=== PATIENT | female | born 1985 | race American Indian/Alaskan Native ===

== ENCOUNTER 2016-11-06 00:03 | Inpatient (IN) | payer OTHER ==
[~2016-11-06 00:03] MED LIST: Acetaminophen 325 MG Tab PO PRN; Calcium Carbonate 500 MG Tab.Chew PO PRN; Carboprost Tromethamine 250 MCG/1 ML Amp IM PRN; Lactated Ringers 500 ML IV ONE; Lidocaine 1% 30 ML SDV INJECT PRN; Methylergonovine 0.2 MG/1 ML Amp IM PRN; Misoprostol 400 MCG (4 X 100 MCG TAB) RECTAL PRN; Ondansetron 4 MG/2 ML SDV IV PRN; Sodium Chloride 0.9% 10 ML Syringe FLUSH PRN; fentaNYL 100 MCG/2 ML SDV IVPUSH PRN
[2016-11-06] MEDS ORDERED: Oxytocin/Normal Saline 30 UNIT/500 ML BAG IV SCH ×2 (00:15→10:45)
[2016-11-06] MEDS: Misoprostol 25 MCG (1/4 of 100 MCG) Tab VAG PRN ×2 (01:11→05:42)
[2016-11-06] MEDS: Lactated Ringers 1,000 ML IV SCH ×3 (05:11→19:13)
--- NOTE | 2016-11-06 08:16 | PCM.LDHP ---
L&D History of Present Illness - General Date of Service: 11/06/16 Admit Problem/Dx: Induction of labor for proteinuria in Source of Information: Patient - History of Present Illness Introduction:: 31-year-old, , at 38w0d presented today at midnight for induction of labor for proteinuria in with history of severe preeclampsia with her previous delivery. Her 24-hour protein earlier this week was 1320 mg (normal < 300 mg). She is overall feeling well. No new headaches or vision changes. Baby has been active. She has been having a lot of back pain and does experience some [place] contractions. Upon arrival to the OB floor, a dose of Cytotoc was placed around 0100. A second dose was placed around 0500. Patient has been tolerating this well. 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: Dermatologic History: Reports: Eczema - Past Surgical History HEENT Surgical History: Reports: Other (see below) (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) GI Surgical History: Reports: Cholecystectomy, Other (see below) (Laparoscopy following cholecystectomy) Other GI Surgeries/Procedures: Exploratory Laparotomy following ellie due to common bile duct being clipped during initial surgery Dermatological Surgical History: Reports: Plastic surgical reconstruction/repair , Other (see below) Social & Family History - Family History Cardiac: Reports: CAD (Paternal grandmother; Maternal grandfather), Hypertension (Mother, Father, 1/2 sister, 2 brothers) Neurological: Reports: CVA (Paternal grandmother) Endocrine/Metabolic: Reports: Diabetes, type II (Brother) Dermatologic: Reports: Eczema Oncologic: Reports: Prostate - Tobacco Use Smoking Status *Q: Former Smoker Years of Tobacco use: 10 Used Tobacco, but Quit: Yes Month Tobacco Last Used: 01/2013 Second Hand Smoke Exposure: No - Recreational Drug Use Recreational Drug Use: No - Sexual History Sexual History: Reports: Sexually active, Vaginal intercourse - Living Situation & Occupation Living situation: Reports: Occupation: employed H&P Review of Systems - Review of Systems: Review Of Systems: See Below General: Reports: no symptoms HEENT: Reports: no symptoms Pulmonary: Reports: No Symptoms Cardiovascular: Reports: no symptoms Gastrointestinal: Reports: No symptoms Genitourinary: Reports: no symptoms Musculoskeletal: Reports: back pain Skin: Reports: no symptoms L&D Exam - Exam Exam: See Below - Vital Signs Vital Signs: Last Vital Signs Temp 36.3 C 11/06/16 04:37 Pulse 62 11/06/16 04:37 Resp 16 11/06/16 04:37 BP 117/70 11/06/16 04:37 Pulse Ox 98 11/06/16 00:30 Weight: 96.162 kg - OB Specific Contraction Duration (sec): 70-90 Contraction Frequency (min): 3 Contraction Intensity: Moderate - Stacy Score Stacy Score Cervix Position: Posterior Tsacy Score Consistency: Medium Stacy Score Effacement: 51-70% Stacy Score Dilation: 1-2 cm Stacy Score 's Station: -3 Stacy Score Total: 4 - Exam General: alert, oriented Lungs: Clear to auscultation, Normal respiratory effort Cardiovascular: regular rate, regular rhythm. No: systolic murmur, diastolic murmur Abdomen: normal bowel sounds, soft Extremities: normal inspection Skin: warm, dry, intact - Patient Data Lab Results last 24 hrs: Laboratory Results - last 24 hr 11/06/16 Range/Units 01:08 WBC 8.1 (5.0-10.0) 10^3/uL RBC 4.07 L (4.2-5.4) 10^6/uL Hgb 12.4 (12.0-16.0) g/dL Hct 36.5 L (37.0-47.0) % MCV 89.7 (80-100) fL MCH 30.5 (27.0-34.0) pg MCHC 34.0 (33.0-35.0) g/dL Plt Count 281 (150-450) 10^3/uL Result Diagrams: 11/06/16 01:08 - Problem List (1) care in third trimester SNOMED Code(s): 105994614, 65049093, 13206127, 639358708, 004162688 ICD Code: Z34.93 - ENCNTR FOR SUPRVSN OF NORMAL PREG, UNSP, THIRD TRIMESTER Status: Acute Current Visit: Yes (2) Proteinuria affecting in third trimester SNOMED Code(s): 69687636, 61473857, 665522986 ICD Code: O12.13 - GESTATIONAL PROTEINURIA, THIRD TRIMESTER Status: Acute Current Visit: Yes (3) History of pre-eclampsia in prior , currently in third trimester SNOMED Code(s): 777529762, 892739721 ICD Code: O09.293 - SUPRVSN OF PREG W POOR REPRODCTV OR OBSTET HX, THIRD TRI Status: Acute Current Visit: Yes Problem List Initiated/Reviewed/Updated: Yes Orders Last 24hrs: Active Orders 24 hr Category Date Time Status Patient Status [ADT] Routine ADT 11/06/16 00:03 Active Communication Order [RC] ASDIRECTED Care 11/06/16 00:03 Active Communication Order [RC] ASDIRECTED Care 11/06/16 00:08 Active Communication Order [RC] ASDIRECTED Care 11/06/16 00:08 Active Communication Order [RC] ASDIRECTED Care 11/06/16 00:08 Active Communication Order [RC] ASDIRECTED Care 11/06/16 00:08 Active Communication Order [RC] PER UNIT ROUTINE Care 11/06/16 00:07 Active Heart Tones [RC] PER UNIT ROUTINE Care 11/06/16 00:03 Active Notify Provider Vital Signs OB [RC] ASDIRECTED Care 11/06/16 00:03 Active Notify Provider [RC] PRN Care 11/06/16 00:03 Active Notify Provider [RC] PRN Care 11/06/16 00:08 Active Notify Provider [RC] PRN Care 11/06/16 00:08 Active Notify Provider [RC] STAT Care 11/06/16 00:08 Active Pump Management, Intrathecal [RC] ASDIRECTED Care 11/06/16 00:03 Active Up ad Ann-Marie [RC] ASDIRECTED Care 11/06/16 00:03 Active Vaginal Exam [RC] PRN Care 11/06/16 00:08 Active Vital Signs [RC] PER UNIT ROUTINE Care 11/06/16 00:03 Active Clear Liquid Diet [DIET] Diet 11/06/16 Breakfast Active Acetaminophen [Tylenol] Med 11/06/16 00:03 Active 650 mg PO Q4H PRN Calcium Carbonate [Tums] Med 11/06/16 00:03 Active 1,000 mg PO Q2H PRN Carboprost Tromethamine [Hemabate DS] Med 11/06/16 00:03 Active 250 mcg IM ASDIRECTED PRN Lactated Ringers [Ringers, Lactated] 1,000 ml Med 11/06/16 00:15 Active IV ASDIRECTED Lidocaine 1% [Xylocaine-MPF 1%] Med 11/06/16 00:03 Active 10 ml INJECT ASDIRECTED PRN Methylergonovine [Methergine] Med 11/06/16 00:03 Active 0.2 mg IM ASDIRECTED PRN Misoprostol [Cytotec] Med 11/06/16 00:07 Active 25 mcg VAG Q4H PRN Misoprostol [Cytotec] Med 11/06/16 00:03 Active 800 mcg RECTAL ASDIRECTED PRN Ondansetron [Zofran] Med 11/06/16 00:03 Active 4 mg IV Q4H PRN Oxytocin/Normal Saline [Pitocin in NS 30 UNIT/500 ML] Med 11/06/16 00:15 Active 30 unit in 500 ml IV TITRATE Sodium Chloride 0.9% [Saline Flush] Med 11/06/16 00:03 Active 10 ml FLUSH ASDIRECTED PRN fentaNYL [Sublimaze] Med 11/06/16 00:03 Active 50 mcg IVPUSH Q1H PRN Saline Lock Insert [OM.PC] Routine Oth 11/06/16 00:03 Ordered Resuscitation Status Routine Resus Stat 11/06/16 00:03 Ordered Medication Orders Acetaminophen (Tylenol) 650 mg PO Q4H PRN PRN Reason: Pain (Mild 1-3) and fever Calcium Carbonate/Glycine (Tums) 1,000 mg PO Q2H PRN PRN Reason: Indigestion Carboprost Tromethamine (Hemabate Ds) 250 mcg IM ASDIRECTED PRN PRN Reason: HEMORRHAGE Fentanyl (Sublimaze) 50 mcg IVPUSH Q1H PRN PRN Reason: Pain (moderate 4-6) Lactated Ringer's (Ringers, Lactated) 1,000 mls @ 125 mls/hr IV ASDIRECTED ROSETTE Last Admin: 11/06/16 05:11 Dose: 125 mls/hr Oxytocin/Sodium Chloride (Pitocin In Ns 30 Unit/500 Ml) 30 unit in 500 mls @ 2 mls/hr IV TITRATE ROSETTE; 2 MUNITS/MIN PRN Reason: Protocol Lidocaine HCl (Xylocaine-Mpf 1%) 10 ml INJECT ASDIRECTED PRN PRN Reason: Perineal Repair Methylergonovine Maleate (Methergine) 0.2 mg IM ASDIRECTED PRN PRN Reason: Hemorrhage Misoprostol (Cytotec) 800 mcg RECTAL ASDIRECTED PRN PRN Reason: Hemorrhage Misoprostol (Cytotec) 25 mcg VAG Q4H PRN PRN Reason: cervical ripening Stop: 11/07/16 04:08 Last Admin: 11/06/16 05:42 Dose: 25 mcg Admin: 11/06/16 01:11 Dose: 25 mcg Ondansetron HCl (Zofran) 4 mg IV Q4H PRN PRN Reason: Nausea/Vomiting Sodium Chloride (Saline Flush) 10 ml FLUSH ASDIRECTED PRN PRN Reason: Keep Vein Open Assessment/Plan Comment:: 1. Continue routine intrapartum cares 2. Plan for another dose of Cytocec around 930 3. Will start pitocin and AROM when needed 4. Monitor BP. Obtain PIH labs if BP >140/90 5. Expectant management. Anticipate Rose Mary Dodd MD ADDENDUM: Was contacted by RN around 1000. Patient karine too frequently to receive another dose of Cytotec. Will start pitocin and plan for AROM when able. Rose Mary Dodd MD
[2016-11-06] MEDS ORDERED: Oxytocin 10 Units/1 ML SDV IM PRN (21:30)
[2016-11-06] MEDS ORDERED: Simethicone 80 MG Tab.Chew PO PRN (21:30)
[2016-11-06] MEDS ORDERED: Benzocaine/Menthol 20%-0.5% Spray 56 GM Canister TOP PRN (21:30)
[2016-11-06] MEDS ORDERED: Sodium Chloride 0.9% 10 ML Syringe FLUSH PRN (21:30)
[2016-11-06] MEDS ORDERED: Carboprost Tromethamine 250 MCG/1 ML Amp IM PRN (21:30)
[2016-11-06] MEDS ORDERED: Famotidine 20 MG Tab PO PRN (21:30)
[2016-11-06] MEDS ORDERED: Misoprostol 400 MCG (4 X 100 MCG TAB) RECTAL PRN (21:30)
[2016-11-06] MEDS ORDERED: diphenhydrAMINE 25 MG Tab PO PRN (21:32)
--- NOTE | 2016-11-06 21:39 | PCM.DEL ---
L & D Note - General Info Date of Service: 11/06/16 Mother's Due Date: 11/20/16 - Delivery Note Labor: augmented by ARM, induced by oxytocin Cervical Ripening Method: Misoprostil (x2 doses) Delivery Outcome: Livebirth Infant Delivery Method: Spontaneous Vaginal Delivery Presentation: Left Occiput Anterior (LUPE) Nuchal cord: present, reduced Anesthesia Type: None Amniotic Fluid Description: Clear Episiotomy Type: None Laceration: 1st degree, perineal (Not repaired) Placenta: intact, spontaneous Cord: 3 vessels Resuscitation needed: No : stimulated, warmed, blanket used Score 1 min: 9 Score 5 min: 9 Delivery Comments (Free Text/Narrative):: 31-year-old, now , presented at midnight for induction of labor. She received 2 doses of Cytotec for cervical ripening. Around 1000, pitocin was started for induction of labor as patient was karine too frequency to continue Cytotec. At 1940, membranes were artificially ruptured to further augment labor. After AROM, patient rapidly progressed to complete dilation over the next 45 minutes. She pushed for approximately 10 minutes and delivered a viable female . A loose nuchal cord was reduced at the perineum, and baby was placed immediately on mother's chest. Apgars were 9 and 9 at 1 and 5 minutes respectively. Baby weighed 6 lb 11 oz (3040 grams). Cord was clamped x2 and cut. Blood for cord blood gases was obtained. The placenta delivered spontaneously about 10 minutes later and appeared to be intact. A 3 vessel cord was noted. A very superficial perineal laceration was noted. It appeared hemostatic so was not repaired. Remainder of perineum was intact. Uterus was firm and bleeding appropriate. There were no immediately complications. Induction Criteria - Stacy Score Stacy Score Dilation: 1-2 cm Stacy Score Effacement: 60-70% Stacy Score 's Station: -2 Stacy Score Consistency: Medium Stacy Score Cervix Position: Posterior Stacy Score Total: 5 Stacy Score Presenting Part: Reports: Cephalic - Induction Gestational Age >/= 39 wks: No Medical indication: Proteinuria in Estimated pelvis: Reports: Adequate Reassuring monitoring strip: Yes Absence of tachy systole: Yes - Augmentation Estimated Pelvis: Reports: Adequate weight estimated:: Reports: AGA Reassuring monitoring strip: Yes Absence of tachy systole: Yes - General Info Date of Service: 11/06/16 - Patient Data Vitals - most recent: Last Vital Signs Temp 36.4 C 11/06/16 14:55 Pulse 67 11/06/16 19:30 Resp 18 11/06/16 19:30 BP 137/79 11/06/16 19:30 Pulse Ox 98 11/06/16 00:30 Weight - most recent: 96.162 kg Lab Results last 24 hrs: Laboratory Results - last 24 hr 11/06/16 Range/Units 01:08 WBC 8.1 (5.0-10.0) 10^3/uL RBC 4.07 L (4.2-5.4) 10^6/uL Hgb 12.4 (12.0-16.0) g/dL Hct 36.5 L (37.0-47.0) % MCV 89.7 (80-100) fL MCH 30.5 (27.0-34.0) pg MCHC 34.0 (33.0-35.0) g/dL Plt Count 281 (150-450) 10^3/uL Med Orders - Current: Current Medications Acetaminophen (Tylenol) 650 mg PO Q6H PRN PRN Reason: mild pain or fever Benzocaine/Menthol (Dermoplast Pain Relief [place]) 0 gm TOP Q4H PRN PRN Reason: Perineal comfort measures Calcium Carbonate/Glycine (Tums) 1,000 mg PO Q2H PRN PRN Reason: Indigestion Carboprost Tromethamine (Hemabate Ds) 250 mcg IM ASDIRECTED PRN PRN Reason: Excessive vaginal bleeding Diphenhydramine HCl (Benadryl) 25 mg PO BEDTIME PRN PRN Reason: Sleep Docusate Sodium (Colace) 100 mg PO BID PRN PRN Reason: Constipation Famotidine (Pepcid) 20 mg PO BID PRN PRN Reason: Heartburn Oxytocin/Sodium Chloride (Pitocin In Ns 30 Unit/500 Ml) 30 unit in 500 mls @ 2 mls/hr IV TITRATE ROSETTE; 2 MUNITS/MIN PRN Reason: Protocol Last Titration: 11/06/16 17:35 Dose: 14 munits/min, 14 mls/hr Ibuprofen (Motrin) 800 mg PO Q8H PRN PRN Reason: Mild Pain or Fever Misoprostol (Cytotec) 25 mcg VAG Q4H PRN PRN Reason: cervical ripening Stop: 11/07/16 04:08 Last Admin: 11/06/16 05:42 Dose: 25 mcg Misoprostol (Cytotec) 800 mcg RECTAL ONETIME PRN PRN Reason: Hemorrhage Oxytocin (Pitocin) 10 unit IM ONETIME PRN PRN Reason: Bleeding Prenat Multivit/[place]/Iron/Folic Ac ( Plus Iron) 1 each PO DAILY ROSETTE Simethicone (Simethicone) 80 mg PO Q4H PRN PRN Reason: Gas Sodium Chloride (Saline Flush) 10 ml FLUSH ASDIRECTED PRN PRN Reason: Keep Vein Open Sodium Chloride (Saline Flush) 10 ml FLUSH ASDIRECTED PRN PRN Reason: Keep Vein Open Discontinued Medications Acetaminophen (Tylenol) 650 mg PO Q4H PRN PRN Reason: Pain (Mild 1-3) and fever Carboprost Tromethamine (Hemabate Ds) 250 mcg IM ASDIRECTED PRN PRN Reason: HEMORRHAGE Fentanyl (Sublimaze) 50 mcg IVPUSH Q1H PRN PRN Reason: Pain (moderate 4-6) Last Admin: 11/06/16 19:40 Dose: 50 mcg Lactated Ringer's (Ringers, Lactated) 500 mls @ 999 mls/hr IV .BOLUS ONE Stop: 11/06/16 00:33 Lactated Ringer's (Ringers, Lactated) 1,000 mls @ 125 mls/hr IV ASDIRECTED ROSETTE Last Admin: 11/06/16 19:13 Dose: 125 mls/hr Oxytocin/Sodium Chloride (Pitocin In Ns 30 Unit/500 Ml) 30 unit in 500 mls @ 2 mls/hr IV TITRATE ROSETTE; 2 MUNITS/MIN PRN Reason: Protocol Lidocaine HCl (Xylocaine-Mpf 1%) 10 ml INJECT ASDIRECTED PRN PRN Reason: Perineal Repair Methylergonovine Maleate (Methergine) 0.2 mg IM ASDIRECTED PRN PRN Reason: Hemorrhage Misoprostol (Cytotec) 800 mcg RECTAL ASDIRECTED PRN PRN Reason: Hemorrhage Ondansetron HCl (Zofran) 4 mg IV Q4H PRN PRN Reason: Nausea/Vomiting - Problem List & Annotations (1) care in third trimester SNOMED Code(s): 516706871, 78234623, 78338307, 658659697, 828332512 Code(s): Z34.93 - ENCNTR FOR SUPRVSN OF NORMAL PREG, UNSP, THIRD TRIMESTER Status: Acute Current Visit: Yes (2) Proteinuria affecting in third trimester SNOMED Code(s): 68474534, 63260675, 740093675 Code(s): O12.13 - GESTATIONAL PROTEINURIA, THIRD TRIMESTER Status: Acute Current Visit: Yes (3) History of pre-eclampsia in prior , currently in third trimester SNOMED Code(s): 878703377, 236533864 Code(s): O09.293 - SUPRVSN OF PREG W POOR REPRODCTV OR OBSTET HX, THIRD TRI Status: Acute Current Visit: Yes (4) (normal spontaneous vaginal delivery) SNOMED Code(s): 64526272 Code(s): O80 - ENCOUNTER FOR FULL-TERM UNCOMPLICATED DELIVERY Status: Acute Current Visit: Yes - Problem List Review Problem List Initiated/Reviewed/Updated: Yes - My Orders Last 24 Hours: My Active Orders 11/06/16 00:03 Patient Status [ADT] Routine Communication Order [RC] ASDIRECTED Vital Signs [RC] PER UNIT ROUTINE Calcium Carbonate [Tums] 1,000 mg PO Q2H PRN Sodium Chloride 0.9% [Saline Flush] 10 ml FLUSH ASDIRECTED PRN Saline Lock Insert [OM.PC] Routine Resuscitation Status Routine 11/06/16 00:07 Communication Order [RC] PER UNIT ROUTINE Misoprostol [Cytotec] 25 mcg VAG Q4H PRN 11/06/16 00:08 Communication Order [RC] ASDIRECTED Communication Order [RC] ASDIRECTED Communication Order [RC] ASDIRECTED Communication Order [RC] ASDIRECTED Notify Provider [RC] PRN Notify Provider [RC] PRN Notify Provider [RC] STAT Vaginal Exam [RC] PRN 11/06/16 10:45 Oxytocin/Normal Saline [Pitocin in NS 30 UNIT/500 ML] 30 unit in 500 ml IV TITRATE 11/06/16 21:30 Vital Signs [RC] PFP Consult to Technical Training Specialist [CONS] Routine Acetaminophen [Tylenol] 650 mg PO Q6H PRN Benzocaine/Menthol [Dermoplast Pain Relief [place]] See Dose Instructions TOP Q4H PRN Carboprost Tromethamine [Hemabate DS] 250 mcg IM ASDIRECTED PRN Docusate Sodium [Colace] 100 mg PO BID PRN Famotidine [Pepcid] 20 mg PO BID PRN Ibuprofen [Motrin] 800 mg PO Q8H PRN Misoprostol [Cytotec] 800 mcg RECTAL ONETIME PRN Oxytocin [Pitocin] 10 unit IM ONETIME PRN Simethicone 80 mg PO Q4H PRN Sodium Chloride 0.9% [Saline Flush] 10 ml FLUSH ASDIRECTED PRN 11/06/16 21:31 Notify Provider Vital Signs OB [RC] ASDIRECTED Up ad Ann-Marie [RC] ASDIRECTED Assess Lochia [WOMSER] Per Unit Routine Assess Uterine Involution [WOMSER] Per Unit Routine Breast Pump [WOMSER] Per Unit Routine Ice Therapy [OM.PC] Per Unit Routine Perineal Care [OM.PC] Per Unit Routine Saline Lock Insert [OM.PC] Urgent Sitz Bath [OM.PC] Per Unit Routine 11/06/16 21:32 diphenhydrAMINE [Benadryl] 25 mg PO BEDTIME PRN 11/07/16 09:00 Vit with Ca/FA/Iron [ Plus Iron] 1 each PO DAILY 11/07/16 Breakfast Regular Diet [DIET] - Assessment Assessment:: 31-year-old, now , status post - Plan Plan:: 1. Initiate routine orders 2. consultation ordered as patient plans to breastfeed 3. Benadryl ordered PRN to help sleep 4. Anticipate discharge 11/08/16 Rose Mary Dodd MD
[2016-11-06] MEDS: Ibuprofen 800 MG Tab PO PRN (22:21)
[2016-11-07] MEDS: Acetaminophen 325 MG Tab PO PRN ×3 (04:09→21:36)
[2016-11-07] MEDS: Ibuprofen 800 MG Tab PO PRN ×2 (07:57→19:35)
[2016-11-07] MEDS: Docusate Sodium 100 MG Cap PO PRN ×2 (07:57→21:35)
[2016-11-07] MEDS: Prenatal Multivitamin with Calcium/Folic Acid/Iron Tab PO SCH (07:59)
--- NOTE | 2016-11-07 11:05 | PCM.PNPP ---
- General Info Date of Service: 11/07/16 Subjective Update: 31-year-old, now , PPD#1 status post . Patient is doing well. She is tolerating a general diet. She has some cramping with but is otherwise pain-free. Vaginal bleeding is decreasing. She is voiding without difficulty. No dizziness or lightheadedness. She is , and it is going well right now. Functional Status: Reports: pain controlled, tolerating diet, ambulating, urinating - Review of Systems General: Reports: No Symptoms HEENT: Reports: no symptoms Pulmonary: Reports: no symptoms Cardiovascular: Reports: No Symptoms Gastrointestinal: Reports: No symptoms Genitourinary: Reports: no symptoms Musculoskeletal: Reports: no symptoms Skin: Reports: no symptoms - General Info Date of Service: 11/07/16 - Patient Data Vital Signs - most recent: Last Vital Signs Temp 36.5 C 11/07/16 08:00 Pulse 51 L 11/07/16 08:00 Resp 16 11/07/16 08:00 BP 126/70 11/07/16 08:00 Pulse Ox 98 11/06/16 00:30 Weight - most recent: 96.162 kg I&O - last 24 hours: Intake & Output 11/06/16 11/07/16 11/07/16 22:59 06:59 14:59 Intake Total 4500 Balance 4500 Med Orders - Current: Current Medications Acetaminophen (Tylenol) 650 mg PO Q6H PRN PRN Reason: mild pain or fever Last Admin: 11/07/16 04:09 Dose: 650 mg Benzocaine/Menthol (Dermoplast Pain Relief [place]) 0 gm TOP Q4H PRN PRN Reason: Perineal comfort measures Last Admin: 11/06/16 23:20 Dose: 1 gm Calcium Carbonate/Glycine (Tums) 1,000 mg PO Q2H PRN PRN Reason: Indigestion Carboprost Tromethamine (Hemabate Ds) 250 mcg IM ASDIRECTED PRN PRN Reason: Excessive vaginal bleeding Diphenhydramine HCl (Benadryl) 25 mg PO BEDTIME PRN PRN Reason: Sleep Docusate Sodium (Colace) 100 mg PO BID PRN PRN Reason: Constipation Last Admin: 11/07/16 07:57 Dose: 100 mg Famotidine (Pepcid) 20 mg PO BID PRN PRN Reason: Heartburn Last Admin: 11/07/16 07:57 Dose: 20 mg Oxytocin/Sodium Chloride (Pitocin In Ns 30 Unit/500 Ml) 30 unit in 500 mls @ 2 mls/hr IV TITRATE ROSETTE; 2 MUNITS/MIN PRN Reason: Protocol Last Titration: 11/06/16 23:16 Dose: Infused Ibuprofen (Motrin) 800 mg PO Q8H PRN PRN Reason: Mild Pain or Fever Last Admin: 11/07/16 07:57 Dose: 800 mg Misoprostol (Cytotec) 800 mcg RECTAL ONETIME PRN PRN Reason: Hemorrhage Oxytocin (Pitocin) 10 unit IM ONETIME PRN PRN Reason: Bleeding Prenat Multivit/Event Management Consultant/Iron/Folic Ac ( Plus Iron) 1 each PO DAILY ROSETTE Last Admin: 11/07/16 07:59 Dose: 1 each Simethicone (Simethicone) 80 mg PO Q4H PRN PRN Reason: Gas Sodium Chloride (Saline Flush) 10 ml FLUSH ASDIRECTED PRN PRN Reason: Keep Vein Open Sodium Chloride (Saline Flush) 10 ml FLUSH ASDIRECTED PRN PRN Reason: Keep Vein Open Discontinued Medications Acetaminophen (Tylenol) 650 mg PO Q4H PRN PRN Reason: Pain (Mild 1-3) and fever Carboprost Tromethamine (Hemabate Ds) 250 mcg IM ASDIRECTED PRN PRN Reason: HEMORRHAGE Fentanyl (Sublimaze) 50 mcg IVPUSH Q1H PRN PRN Reason: Pain (moderate 4-6) Last Admin: 11/06/16 19:40 Dose: 50 mcg Lactated Ringer's (Ringers, Lactated) 500 mls @ 999 mls/hr IV .BOLUS ONE Stop: 11/06/16 00:33 Last Admin: 11/07/16 00:48 Dose: Not Given Lactated Ringer's (Ringers, Lactated) 1,000 mls @ 125 mls/hr IV ASDIRECTED ROSETTE Last Admin: 11/06/16 19:13 Dose: 125 mls/hr Oxytocin/Sodium Chloride (Pitocin In Ns 30 Unit/500 Ml) 30 unit in 500 mls @ 2 mls/hr IV TITRATE ROSETTE; 2 MUNITS/MIN PRN Reason: Protocol Lidocaine HCl (Xylocaine-Mpf 1%) 10 ml INJECT ASDIRECTED PRN PRN Reason: Perineal Repair Methylergonovine Maleate (Methergine) 0.2 mg IM ASDIRECTED PRN PRN Reason: Hemorrhage Misoprostol (Cytotec) 800 mcg RECTAL ASDIRECTED PRN PRN Reason: Hemorrhage Misoprostol (Cytotec) 25 mcg VAG Q4H PRN PRN Reason: cervical ripening Stop: 11/07/16 04:08 Last Admin: 11/06/16 05:42 Dose: 25 mcg Ondansetron HCl (Zofran) 4 mg IV Q4H PRN PRN Reason: Nausea/Vomiting Last Admin: 11/06/16 20:51 Dose: 4 mg - Interaction Infant Disposition, : [place] in Room with Family Infant Interaction: Holding Infant Feeding: Breastfed ; Nursed Well Support Person: - Recovery Exam Fundal Tone: Firm Fundal Level: At Umbilicus Fundal Placement: Midline Lochia Amount: Small Lochia Color: Rubra/Red Perineum Description: Intact, Minimal Bruising/Swelling Other Perinuem Description: 1st degree, no repair needed Episiotomy/Laceration: Approximated Bladder Status: Voiding Urinary Elimination: Voided - Exam General: alert, oriented HEENT: Mucous membr. moist/pink Lungs: Clear to auscultation, Normal respiratory effort Cardiovascular: Regular Rate, Regular Rhythm, No Murmurs Extremities: no edema Skin: warm, dry, intact - Problem List & Annotations (1) care in third trimester SNOMED Code(s): 900287056, 69576223, 74334185, 406976011, 586740545 Code(s): Z34.93 - ENCNTR FOR SUPRVSN OF NORMAL PREG, UNSP, THIRD TRIMESTER Status: Acute Current Visit: Yes (2) Proteinuria affecting in third trimester SNOMED Code(s): 74161863, 96895326, 487917413 Code(s): O12.13 - GESTATIONAL PROTEINURIA, THIRD TRIMESTER Status: Acute Current Visit: Yes (3) History of pre-eclampsia in prior , currently in third trimester SNOMED Code(s): 293739117, 377268119 Code(s): O09.293 - SUPRVSN OF PREG W POOR REPRODCTV OR OBSTET HX, THIRD TRI Status: Acute Current Visit: Yes (4) (normal spontaneous vaginal delivery) SNOMED Code(s): 04267448 Code(s): O80 - ENCOUNTER FOR FULL-TERM UNCOMPLICATED DELIVERY Status: Acute Current Visit: Yes - Problem List Review Problem List Initiated/Reviewed/Updated: Yes - My Orders Last 24 Hours: My Active Orders 11/06/16 10:45 Oxytocin/Normal Saline [Pitocin in NS 30 UNIT/500 ML] 30 unit in 500 ml IV TITRATE 11/06/16 21:30 Vital Signs [RC] 08,20 Consult to Honey Producer [CONS] Routine Acetaminophen [Tylenol] 650 mg PO Q6H PRN Benzocaine/Menthol [Dermoplast Pain Relief [place]] See Dose Instructions TOP Q4H PRN Carboprost Tromethamine [Hemabate DS] 250 mcg IM ASDIRECTED PRN Docusate Sodium [Colace] 100 mg PO BID PRN Famotidine [Pepcid] 20 mg PO BID PRN Ibuprofen [Motrin] 800 mg PO Q8H PRN Misoprostol [Cytotec] 800 mcg RECTAL ONETIME PRN Oxytocin [Pitocin] 10 unit IM ONETIME PRN Simethicone 80 mg PO Q4H PRN Sodium Chloride 0.9% [Saline Flush] 10 ml FLUSH ASDIRECTED PRN 11/06/16 21:31 Notify Provider Vital Signs OB [RC] ASDIRECTED Up ad Ann-Marie [RC] ASDIRECTED Assess Lochia [WOMSER] Per Unit Routine Assess Uterine Involution [WOMSER] Per Unit Routine Breast Pump [WOMSER] Per Unit Routine Ice Therapy [OM.PC] Per Unit Routine Perineal Care [OM.PC] Per Unit Routine Saline Lock Insert [OM.PC] Urgent Sitz Bath [OM.PC] Per Unit Routine 11/06/16 21:32 diphenhydrAMINE [Benadryl] 25 mg PO BEDTIME PRN 11/07/16 09:00 Vit with Ca/FA/Iron [ Plus Iron] 1 each PO DAILY 11/07/16 Breakfast Regular Diet [DIET] - Assessment Assessment:: 31-year-old, now , PPD#1 status post - Plan Plan:: 1. Continue routine orders 2. well. 3. Benadryl ordered PRN to help sleep 4. Anticipate discharge 11/08/16. Dr. Holt will see patient and discharge tomorrow. Follow-up with me in clinic in 6 weeks for visit Rose Mary Dodd MD
[2016-11-08] MEDS: Prenatal Multivitamin with Calcium/Folic Acid/Iron Tab PO SCH (09:30)
[2016-11-08] MEDS: Ibuprofen 800 MG Tab PO PRN (09:30)
[2016-11-08 11:35] VITALS: BP 141/69
--- NOTE | 2016-11-08 14:44 | DISCH ---
DATE: 11/08/2016 The patient is day 2, status post vaginal delivery. She was induced at term for proteinuria. Mom and baby are doing well. She reports her lochia is minimal. She has no complaints. PHYSICAL EXAMINATION: Vital Signs: She is afebrile. Blood pressure 126 to 145 over 70 to 75, heart rate 43 to 51, respiratory rate 16 to 20. Abdomen: The patient's fundus is firm, below the umbilicus. Extremities: Have no tenderness, no edema. LABORATORY DATA: The patient's blood type O positive, rubella immune. Pre- delivery hemoglobin was good at 12.4. ASSESSMENT AND PLAN: day 2, status post vaginal delivery at term. Her and baby are both doing well. We will discharge her to home. She will follow up with her primary in 6 weeks. [facility] /[id number]
== END 2016-11-08 11:50 | disposition home or self-care (01) | DRG 775 ==
LOC: DL.OB 00:03 → UNDOADMOB 00:03 → EDSTATUS 00:13 → UNDOADMOB 00:18 → DL.OB 00:18 → INTOOBSV 21:42 → OBSVTOIN 21:42 → DL.OB 21:42
PROVIDERS: ADMIT Family Medicine; ATTEND Family Medicine
PROC: 10E0XZZ Delivery of Products of Conception, External Approach (ICD-10-PCS; principal; 2016-11-06)
PROC: 3E033VJ Introduction of Other Hormone into Peripheral Vein, Percutaneous Approach (ICD-10-PCS; 2016-11-06)
PROC: 10907ZC Drainage of Amniotic Fluid, Therapeutic from Products of Conception, Via Natural or Artificial Opening (ICD-10-PCS; 2016-11-06)
PROC: 4A1HXFZ Monitoring of Products of Conception, Cardiac Rhythm, External Approach (ICD-10-PCS; 2016-11-06)
DX: O12.13 Gestational proteinuria, third trimester (principal); O70.0 First degree perineal laceration during delivery; O09.293 Supervision of pregnancy with other poor reproductive or obstetric history, third trimester; Z3A.38 38 weeks gestation of pregnancy; Z37.0 Single live birth; Z87.891 Personal history of nicotine dependence
CPT/HCPCS: 36415; 85027; A9270-GY; J2405; J2590; J3010; J7120

== ENCOUNTER 2018-12-10 03:22 | Inpatient (IN) | payer BC, OTHER ==
[2018-12-10] MEDS ORDERED: Methylergonovine 0.2 MG/1 ML Amp IM PRN (04:12)
[2018-12-10] MEDS ORDERED: Ondansetron 4 MG/2 ML SDV IV PRN (04:12)
[2018-12-10] MEDS ORDERED: Lidocaine 1% 30 ML SDV INJECT PRN (04:12)
[2018-12-10] MEDS ORDERED: Tranexamic Acid 1,000 MG in Sodium Chloride 0.9% 100 ML IV PRN ×2 (04:12→09:14)
[2018-12-10] MEDS ORDERED: Misoprostol 400 MCG (4 X 100 MCG TAB) RECTAL PRN ×2 (04:12→09:14)
[2018-12-10] MEDS ORDERED: Carboprost Tromethamine 250 MCG/1 ML Amp IM PRN ×2 (04:12→09:14)
[2018-12-10] MEDS ORDERED: Sodium Chloride 0.9% 10 ML Syringe FLUSH PRN ×2 (04:12→09:14)
[2018-12-10] MEDS ORDERED: Lactated Ringers 1,000 ML IV ONE (04:15)
[2018-12-10] MEDS ORDERED: Lactated Ringers 1,000 ML IV SCH (04:15)
[2018-12-10] MEDS ORDERED: Oxytocin/Normal Saline 30 UNIT/500 ML BAG IV SCH (04:15)
[2018-12-10] MEDS ORDERED: EPINEPHrine 1 MG/ML SDV ONE (04:49)
[2018-12-10] MEDS ORDERED: fentaNYL 100 MCG/2 ML SDV ONE (04:49)
--- NOTE | 2018-12-10 05:23 | PCM.PRNOTE ---
- Free Text/Narrative Note: Requested to provide analgesia to full term patient in severe pain. Upon entering the room, patient is sitting on edge of bed complaining of severe abdominal/pelvic pain and discomfort. Procedure was discussed with patient including adverse outcomes and expectations. Pt consented to analgesia, SAB/ IT. Pt placed into a proper sitting position. Landmarks for SAB/IT were identified and marked. Hands were washed and appropriate PPE was applied. Back was prepped with betadine x3. A sterile, transparent, fenestrated drape was applied. Excess betadine was removed. Using 3 mL of a 1% lidocaine solution , a skin wheel was placed at the L2/L3 interspace. A 24 ga (4 inch) Pencan spinal needle was inserted until positive for CSF. Negative for heme or paresthesias. Injected fentanyl 30 mcg, sufentanil 25 mcg, and 7.5 mg of a 0.75 % bupivacaine solution with an epi wash. Pt was placed left lateral position for approximately 20 minutes. There were zero complications or adverse outcomes. Will continue to monitor. Procedure Date & Time: 12/10/18 [id number]
[2018-12-10] MEDS ORDERED: Calcium Carbonate 500 MG Tab.Chew PO PRN (07:28)
[2018-12-10] MEDS ORDERED: Simethicone 80 MG Tab.Chew PO PRN (09:14)
[2018-12-10] MEDS ORDERED: Oxytocin 10 Units/1 ML SDV IM PRN (09:14)
[2018-12-10] MEDS ORDERED: Acetaminophen 325 MG Tab PO PRN (09:14)
[2018-12-10] MEDS ORDERED: Benzocaine/Menthol 20%-0.5% Spray 56 GM Canister TOP PRN (09:14)
[2018-12-10] MEDS: Famotidine 20 MG Tab PO SCH (09:48)
[2018-12-10] MEDS: Ibuprofen 800 MG Tab PO PRN ×2 (09:48→20:23)
--- NOTE | 2018-12-10 10:51 | HP ---
CHIEF COMPLAINT: Contractions increasing in frequency and intensity. HISTORY OF PRESENT ILLNESS: The patient is a 33-year-old 4, para 2-0-1- 2, who presented to Labor and Delivery at 38 weeks 5 days' gestation due to increasing intensity and frequency of contractions. She endorses positive movement, no leakage of fluids or vaginal bleeding. She does endorse some clear discharge. She states that her contractions started around 12/08/2018, but she was still able to go to work and function as normally. They continued to increase in intensity and frequency and around 3:50 a.m., the patient presented to Labor and Delivery for labor. The patient denies symptoms of headache, blurred vision, chest pain, or shortness of breath. No lower extremity edema or lower extremity swelling. The patient has been observed on monitor with heart rate baseline of 130 bpm, reactive strip. Coin shows contractions every 3 to 4 minutes. The patient received an intrathecal anesthesia at 5 a.m. and was able to rest. No other concerns at this time. PAST HISTORY: 1. First , spontaneous in early . 2. A term male at 38 weeks' gestation, delivered in 2002, via spontaneous vaginal delivery. Baby was 3232 g, and the patient had preeclampsia with this . 3. A term female infant born at 38 weeks 0 days' gestation in 2017 via spontaneous vaginal delivery. The patient was induced at this time due to proteinuria and subsequent mild preeclampsia. Baby was 3033 g. PAST MEDICAL HISTORY: 1. Congenital ear anomaly with reconstruction. 2. History of eczema. 3. History of chicken pox. PAST SURGICAL HISTORY: 1. Cholecystectomy. 2. Exploratory laparotomy due to complications from laparoscopic cholecystectomy. FAMILY HISTORY: Mother has history of hypertension on maternal side. Father has history of hypertension on father's side. History of eczema in a cousin. History of diabetes type 2 in her brother along with hypertension. History of hypertension in her sister. Negative for family history of defects, anesthesia problems, bleeding or clotting concerns. 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 The patient's is Sohan Cordoba. He works for [employer] in [place], [place]. They have 2 children who live at home with them along with 4 cats and 2 dogs. CURRENT MEDICATIONS: 1. vitamins. 2. Tums. ALLERGIES: Cephalexin, reaction is a rash. REVIEW OF SYSTEMS: The patient denies any feelings of headache, changes in vision, chest pain, shortness of breath, changes in bowel or bladder habits, or lower extremity edema. OBJECTIVE: Vital Signs: Heart rate 59 bpm, BP 107/61, RR 16 breaths per minute. General: Awake, alert, lying in bed, comfortable. HEENT: Grossly normal. Pulmonary: Lungs are clear to auscultation bilaterally. No increased work of breathing. Cardiovascular: Regular rate and rhythm. No murmurs noted. Abdomen: Soft, normoactive bowel sounds, gravid uterus palpated at 39 cm. Extremities: No lower extremity edema. No tenderness to palpation of calves bilaterally. Neurologic: Grossly normal. Cervical: 6 cm at 7 a.m. ASSESSMENT: The patient is a 33-year-old 4, para 2-0-1-2, who presents at 38 weeks 5 days' gestation who presented in labor. The patient is O positive, group B streptococcus negative. PLAN: Continue routine management and preparation of labor. The patient was seen and evaluated today by myself and Dr. Rose Mary Dodd. Assessment and plan is under advisement of Dr. Dodd. -Christiane Jauregui, MS-III [facility] /[id number] Patient was personally seen and examined with the medical student. I reviewed the noted scribed on my behalf and necessary changes have been made to reflect my opinion on the history, exam, assessment, and plan. Rose Mary Dodd MD [facility]ITAL[facility]
--- NOTE | 2018-12-10 12:19 | DEL ---
DATE: 12/10/2018 PERIPARTUM DIAGNOSES: 1. A 38-week 5-day intrauterine . 2. 4, para 2-0-1-2. 3. History of preeclampsia with previous pregnancies. 4. Impaired glucose tolerance test. 5. Proteinuria in . 6. O positive, group B streptococcus negative, rubella immune. 7. Right renal sinus separation and mild hydronephrosis noted on ultrasound on 11/24/2018. DIAGNOSES: 1. A 38-week 5-day intrauterine . 2. 4, now para 3-0-1-3. 3. History of preeclampsia with previous pregnancies. 4. Impaired glucose tolerance test. 5. Proteinuria in . 6. O positive, group B streptococcus negative, rubella immune. 7. Right renal sinus separation and mild hydronephrosis noted on ultrasound on 11/24/2018. 8. Status post spontaneous vaginal delivery with small first-degree perineal laceration that was hemostatic and did not necessitate repair. BRIEF HISTORY: The patient is a 33-year-old 4, para 2-0-1-2, who presented to Labor and Delivery at 38 weeks 5 days' gestation due to increasing intensity and frequency of contractions. The patient stated that contractions began on 12/07/2018, and has slowly progressed in frequency and intensity until the point this morning at around 3 a.m., the patient decided to present to Labor and Delivery for subsequent labor. Upon arrival, the patient was noted to be dilated to 3. The patient received intrathecal anesthesia at 5 a.m. The patient was allowed to rest. The patient was checked again at 7:03 and was noted to be 6 cm at that time. Pitocin was then initiated. The patient was checked again and artificial rupture of membranes occurred at 8:07 with clear fluid. Labor progressed quickly thereafter. PROCEDURE IN DETAIL: After artificial rupture of membranes, the patient was checked and noted to be 9 cm. At that time, the patient was monitored and rested until 8:27 when she was checked again due to feelings of increased pressure and urge to push. The patient was noted to be complete at this time. The patient pushed for a total of 7 minutes. After pushing for 7 minutes, the patient delivered a viable male term in the dorsal lithotomy position in the LUPE position. After the 's head was delivered, the remainder of body followed readily thereafter. Infant was dried, stimulated, bulb suctioned, and then placed on mother's abdomen to initiate bonding. Delayed cord clamping occurred. Cord was then clamped and cut by Sohan, the patient's . The placenta was delivered with gentle cord traction and concomitant uterine massage about 15 minutes thereafter. Prior to delivery of placenta, a large clot 8 cm x 10 cm in diameter was removed. The perineal area and vagina were inspected after delivery and a very minimal first- degree perineal laceration was noted. Pressure was applied and hemostasis occurred without necessitation for repair. The patient tolerated the procedure well. No other complaints were noted. COMPLICATIONS: None. ESTIMATED BLOOD LOSS: 350 mL. ASSESSMENT: 1. Viable term male . 2. scores of 9 and 9 at 1 and 5 minutes respectively. 3. Spontaneous vaginal delivery. PLAN: 1. Initiate routine cares. 2. . DISPOSITION: Baby rooming in with mother to initiate bonding and . The procedure was completed by myself and Dr. Rose Mary Dodd. Assessment and plan is under advisement of Dr. Rose Mary Dodd. [facility] /[id number] Patient was personally seen and examined with the medical student. I reviewed the noted scribed on my behalf and necessary changes have been made to reflect my opinion on the history, exam, assessment, and plan. I was present for the entire delivery and assisted the student with the above procedure Rose Mary Dodd MD [facility]
[2018-12-10] MEDS: Acetaminophen 325 MG Tab PO PRN ×2 (14:20→20:24)
[2018-12-10] MEDS: Docusate Sodium 100 MG Cap PO PRN (20:26)
[2018-12-10] MEDS ORDERED: Zolpidem 5 MG Tab PO PRN (21:00)
[2018-12-11] MEDS: Acetaminophen 325 MG Tab PO PRN ×2 (02:05→09:12)
[2018-12-11] MEDS: Ibuprofen 800 MG Tab PO PRN (04:38)
[2018-12-11 08:57] VITALS: BP 123/69
[2018-12-11] MEDS ORDERED: Prenatal Multivitamin with Calcium/Folic Acid/Iron Tab PO SCH (09:00)
[2018-12-11] MEDS: Docusate Sodium 100 MG Cap PO PRN (09:13)
[2018-12-11] MEDS: Famotidine 20 MG Tab PO SCH (09:47)
--- NOTE | 2018-12-11 11:57 | PN ---
DATE: 12/11/2018 LOCATION: [facility]. SUBJECTIVE: The patient is day #1, status post vaginal delivery. Mom and baby are both doing well. She does desire discharge today. Lochia is minimal. OBJECTIVE: Vital Signs: Patient is afebrile, heart rate 54 to 67, blood pressure 109 to 129 over 57 to 69, respiratory rate 16 to 18, and O2 saturation 98% to 99%. Pelvic: The patient's fundus is firm below the umbilicus. Extremities: Have no tenderness, no edema. Blood type is O-positive. She is rubella immune. Hemoglobin after delivery was 11.1 from 12.9. ASSESSMENT AND PLAN: day #1, status post vaginal delivery. Mom and baby are both doing well. She does desire discharge. Therefore, we will discharge her to home and she will follow up in 6 weeks for her visit. [facility] /[id number] [place]
[2018-12-11] MEDS ORDERED: EPINEPHrine 1 MG/ML SDV ONE (12:54)
[2018-12-11] MEDS ORDERED: fentaNYL 100 MCG/2 ML SDV ITHECAL ONE (12:54)
== END 2018-12-11 12:55 | disposition home or self-care (01) | DRG 560 ==
LOC: DL.OBCHECK 03:22 → DL.OB 03:30 → UNDOADMOB 03:30 → DL.OB 08:34 → OBSVTOIN 08:34
PROVIDERS: ADMIT Family Medicine; ATTEND Family Medicine
PROC: 10E0XZZ Delivery of Products of Conception, External Approach (ICD-10-PCS; principal; 2018-12-10)
PROC: 3E0R3BZ Introduction of Anesthetic Agent into Spinal Canal, Percutaneous Approach (ICD-10-PCS; 2018-12-10)
PROC: 00HU33Z Insertion of Infusion Device into Spinal Canal, Percutaneous Approach (ICD-10-PCS; 2018-12-10)
PROC: 10907ZC Drainage of Amniotic Fluid, Therapeutic from Products of Conception, Via Natural or Artificial Opening (ICD-10-PCS; 2018-12-10)
DX: O99.814 Abnormal glucose complicating childbirth (principal); Z3A.38 38 weeks gestation of pregnancy; Z37.0 Single live birth; O70.0 First degree perineal laceration during delivery; O12.14 Gestational proteinuria, complicating childbirth
CPT/HCPCS: 36415; 59409; 85027; A9270-GY; J0171; J2405; J2590; J3010; J7120